=== PATIENT | female | born 1995 | race Caucasian/White ===

== ENCOUNTER 2017-09-05 17:34 | Emergency (ER) | payer BC ==
--- NOTE | 2017-09-05 18:34 | UC ---
FLU HPI - HPI Summary HPI Summary: Pt here w/ fever, chills, ST, PND, vomiting, aches, HENRY and cough. Partner dx'd w / influenza A yesterday. Pt has asthma and has not used inhaler as this is over 1 year old - would like refill. Denies rash, chest pain, SOB, neck stiffness. Took ibuprofen prior to arrival. - History of Current Complaint Chief Complaint: UCGeneralIllness Stated Complaint: FLU SX'S Time Seen by Provider: 09/05/17 18:17 Hx Obtained From: Patient, Family/Jewelry Manager - partner Hx Last Menstrual Period: 1 MO AGO Pain Intensity: 7 - Allergy/Home Medications Allergies/Adverse Reactions: Allergies Allergy/AdvReac Type Severity Reaction Status Date / Time No Known Allergies Allergy Verified 09/05/17 17:55 Home Medications: Home Medications Ibuprofen TAB* [Advil TAB*] 600 mg PO Q6H PRN 09/05/17 [History Confirmed ] Norgestimate-Ethinyl Estradiol [Norgestimate/Ethinyl Estr] 1 tab PO DAILY [History Confirmed 09/05/17] PMH/Surg Hx/FS Hx/Imm Hx Previously Healthy: Yes Respiratory History: Asthma - Surgical History Surgical History: None - Family History Known Family History: Positive: None - Social History Occupation: Employed Full-time Lives: With Family Alcohol Use: Rare Substance Use Type: None Smoking Status (MU): Never Smoked Tobacco Review of Systems Constitutional: Fever, Chills, Fatigue Eyes: Negative ENT: Sore Throat, Nasal Discharge Respiratory: Cough Cardiovascular: Negative Gastrointestinal: Vomiting, Nausea Genitourinary: Negative Motor: Negative Neurovascular: Negative Musculoskeletal: Arthralgia Neurological: Headache Psychological: Negative Is Patient Immunocompromised?: No All Other Systems Reviewed And Are Negative: Yes Physical Exam Triage Information Reviewed: Yes Appearance: No Pain Distress, Ill-Appearing - pt appears to have mild fatigue, Obese Vital Signs: Initial Vital Signs Temp 99.6 F 09/05/17 17:58 Pulse 100 09/05/17 17:58 Resp 20 09/05/17 17:58 BP 139/75 09/05/17 17:58 Pulse Ox 100 09/05/17 17:58 Eye Exam: Normal Eyes: Positive: Conjunctiva Clear. Negative: Discharge ENT Exam: Normal ENT: Positive: Normal ENT inspection, Hearing grossly normal, Pharynx normal - cobblestoning, Nasal congestion - mild, TMs normal. Negative: Tonsillar swelling, Tonsillar exudate, Trismus, Muffled voice, Hoarse voice Neck exam: Normal Neck: Positive: Supple, Nontender, No Lymphadenopathy Respiratory: Positive: Wheezing - w/ cough. Negative: Crackles, Rhonchi, Stridor Cardiovascular Exam: Normal Cardiovascular: Positive: RRR Abdominal Exam: Normal Abdomen Description: Positive: Nontender, No Organomegaly, Soft Bowel Sounds: Positive: Present Musculoskeletal Exam: Normal Musculoskeletal: Positive: Strength Intact Neurological Exam: Normal Psychological Exam: Normal Skin Exam: Normal Flu Course/Dx - Course Course Of Treatment: Pt here w/ flu-like sx and male partner w/ Influenza A dx' d yesterday. Will tx w/ tamiflu and supportive care. Reviewed danger s/sx of when to go to ED. Pt and partner agree w/ plan. NOTE: will send albuterol to pharmacy and advised to initiate use to prevent bronchitis - Differential Dx/Diagnosis Provider Diagnoses: *Flu-like sx. *Asthma Discharge - Discharge Plan Condition: Stable Disposition: HOME Prescriptions: Albuterol HFA INHALER* [Ventolin HFA Inhaler*] 2 puff INH Q6H PRN #1 mdi PRN Reason: Cough Oseltamivir CAP* [Tamiflu CAP*] 75 mg PO BID #10 cap Patient Education Materials: Influenza (ED), Asthma (ED) Referrals: No Primary Care Phys,NOPCP [Primary Care Provider] - [facility]FERR[facility] [Outside] Additional Instructions: Complete course of tamiflu. Use supportive care measures below to reduce symptoms: Perform nasal wash/netti pot 2 x day with 8 ounces of warm water + 1/4 teaspoon of salt or saline nasal spray as needed Perform throat gargles with warm salt water as needed Drink 60+ ounces of water daily Sleep 8+ hours per night Avoid Dairy and sugar Drink hot herbal/decaf tea with lemon & honey Drink chicken broth (preferably organic, free range chicken) Use a humidifier in your house, but especially near bed at night. You may also keep home temperature at 68F or less. Try a facial steam with or without eucalyptus essential oil or Keanu's vapor rub for decongestion. Cough drops Avoid smoke, candles, perfumes/colonge, air fresheners, scented lotions, etc Consider taking Vitamin D3 5,000iu and Vitamin C 1,000mg every day during illness
== END 2017-09-05 18:45 | disposition home or self-care (01) ==
LOC: UCCORT 17:34
DX: J11.1 Influenza due to unidentified influenza virus with other respiratory manifestations (principal); J45.909 Unspecified asthma, uncomplicated; Z20.828 Contact with and (suspected) exposure to other viral communicable diseases
CPT/HCPCS: 99202; G0463

== ENCOUNTER 2019-01-04 07:41 | Emergency (ER) | payer BC ==
[2019-01-04 08:06] VITALS: BP 131/86
--- NOTE | 2019-01-04 08:16 | UC ---
Throat Pain/Nasal Drew HPI - HPI Summary HPI Summary: 23-year-old female comes in with a chief complaint of nasal congestion and cough. Last 3 days nasal congestion really bad. She's been having these symptoms persistently for 2 months has gotten worse in the last 3 days. No fevers. She feels like the congestion is making it hard to breathe and it's making her asthma worse. She does use a steroid nasal spray and also an inhaled corticosteroid for her asthma. Rhinorrhea is green. She has been using her albuterol inhaler. - History of Current Complaint Chief Complaint: UCGeneralIllness Stated Complaint: CONGESTION Time Seen by Provider: 01/04/19 07:58 Hx Last Menstrual Period: 11/2018 Pain Intensity: 0 - Allergies/Home Medications Allergies/Adverse Reactions: Allergies Allergy/AdvReac Type Severity Reaction Status Date / Time No Known Allergies Allergy Verified 01/04/19 08:00 Home Medications: Home Medications Escitalopram * [Lexapro 5 mg (NF)] 10 mg PO DAILY 01/04/19 [History Confirmed ] Fluticasone/Vilanterol [Breo Ellipta 200-25 Mcg INH] 1 each IH DAILY PRN [History Confirmed 01/04/19] Mometasone NASAL (NF) [Nasonex (NF)] 1 spray .SEE ORDER DAILY 01/04/19 [History Confirmed 01/04/19] busPIRone TAB* [Buspar TAB*] 7.5 mg PO BID PRN 01/04/19 [History Confirmed 01/04] PMH/Surg Hx/FS Hx/Imm Hx Previously Healthy: Yes Respiratory History: Asthma - Surgical History Surgical History: None - Family History Known Family History: Positive: None - Social History Alcohol Use: Rare Substance Use Type: None Smoking Status (MU): Never Smoked Tobacco Review of Systems All Other Systems Reviewed And Are Negative: Yes Constitutional: Positive: Negative Skin: Positive: Negative Eyes: Positive: Negative ENT: Positive: Sore Throat, Nasal Discharge, Sinus Congestion Respiratory: Positive: Other - see hpi Cardiovascular: Positive: Negative Gastrointestinal: Positive: Negative Motor: Positive: Negative Neurovascular: Positive: Negative Musculoskeletal: Positive: Negative Neurological: Positive: Negative Psychological: Positive: Negative Is Patient Immunocompromised?: No Physical Exam Triage Information Reviewed: Yes Appearance: No Pain Distress, Well-Nourished, Ill-Appearing Vital Signs: Initial Vital Signs Temp 97.9 F 01/04/19 08:00 Pulse 92 01/04/19 08:00 Resp 18 01/04/19 08:00 BP 131/86 01/04/19 08:00 Pulse Ox 99 01/04/19 08:00 Vital Signs Reviewed: Yes Eye Exam: Normal Eyes: Positive: Conjunctiva Clear Neck: Positive: Supple Respiratory: Positive: Lungs clear, Normal breath sounds, No respiratory distress Cardiovascular: Positive: RRR Musculoskeletal Exam: Normal Musculoskeletal: Positive: Strength Intact, ROM Intact Neurological Exam: Normal Neurological: Positive: Alert, Muscle Tone Normal Psychological Exam: Normal Psychological: Positive: Normal Response To Family, Age Appropriate Behavior Skin Exam: Normal Throat Pain/Nasal Course/Dx - Differential Dx/Diagnosis Provider Diagnosis: Sinusitis, Asthma Discharge - Sign-Out/Discharge Documenting (check all that apply): Patient Departure All imaging exams completed and their final reports reviewed: No Studies - Discharge Plan Condition: Stable Disposition: HOME Prescriptions: Amoxicillin PO (*) [Amoxicillin 875 MG (*)] 875 mg PO BID #20 tab Patient Education Materials: Asthma (ED), Sinusitis (ED) Referrals: Celine Diez PA [Primary Care Provider] - Additional Instructions: FOLLOW UP WITH YOUR DOCTOR IF NOT COMPLETELY IMPROVED. GET RECHECKED SOONER IF YOUR CONDITION WORSENS OR ANY QUESTIONS OR CONCERNS. - Billing Disposition and Condition Condition: STABLE Disposition: Home
== END 2019-01-04 08:20 | disposition home or self-care (01) ==
LOC: UCCORT 07:41
DX: J32.9 Chronic sinusitis, unspecified (principal); J45.909 Unspecified asthma, uncomplicated; R05 Cough; R09.81 Nasal congestion
CPT/HCPCS: 99212; G0463

== ENCOUNTER 2019-03-13 08:34 | Emergency (ER) | payer BC ==
--- OUTSIDE RECORDS SUMMARY | 2019-03-13 08:41 | XMS REPORT | Continuity of Care Document ---
:1995 External Reference #:[id number] Author Name Celine Diez PA Address [address] [place] [address] [place] [address] Care Team Providers Name Role Phone Ronald Hurt DO - Family Medicine Care Team Information Armature Bander Problems Description No Information Available Social History Type Date Description Comments Sex Unknown ETOH Use Denies alcohol use Tobacco Use Start: Unknown Patient has never smoked Smoking Status Reviewed: 11/06/18 Patient has never smoked Allergies, Adverse Reactions, Alerts Description No Known Drug Allergies Medications Active Medications SIG Qnty Indications Ordering Date Provider Vienva Take 1 Tablet By 84tabs Z30.9 Ronald Hurt, 03/03/2019 0.1-20mg-mcg Mouth Every Day DO Tablets Proair HFA 2 puffs every 4-6 8.500gm R06.02 Rnoald Hurt, 09/29/2018 108(90Base) hours as needed DO mcg/Act Aerosol for cough, sob, wheezing Albuterol Sulfate HFA 2 puffs every 4-6 8.500gm R06.02 Ronald Hurt, hours as needed DO 108(90Base) mcg/Act for cough, sob, Aerosol wheezing Escitalopram Oxalate Take 1 Tablet By 90tabs F41.1 Ronald Hurt, 2017 Mouth Every Day DO 10mg Tablets Buspirone HCL 1 tablet by mouth 120tabs F41.1 Ronald Hurt, 06/26/2018 7.5mg twice a day as DO Tablets needed Lisinopril Take 1 Tablet By 90tabs I10 Ronald Hurt, 02/13/2018 10mg Tablets Mouth Every Day DO Medications Administered in Office Medication SIG Qnty Indications Ordering Provider Date History of Varicella infection Celine Diez PA 08/13/2003 Injection Immunizations CPT Code Status Date Vaccine Reaction Lot # [id number] Given 09/28/2018 Influenza Vac, Quadrivalent, Split, 0.5mL Dosage, Im Use 94940 Given 01/09/2018 Tdap (Adacel) Ages 7 And Above Only [id number] 64938 Given 10/29/2011 Menactra/Menveo Meningococcal Vaccine 00762 Given 01/16/2007 Tdap (Adacel) Ages 7 And Above Only 44179 Given 01/16/2007 Hepatitis A, Ped/Adolescent 2 Dose Schedule 55083 Given 03/14/2006 Hepatitis A, Ped/Adolescent 2 Dose Schedule 54417 Given 01/20/1999 Oral Poliovirus Immunization 66590 Given 10/30/1998 MMR Virus Immunization 55079 Given 10/30/1998 DTaP Immunization 7 Yrs & Younger 94729 Given 07/02/1998 Hib ACTHiB Vaccine 4 Dose Schedule 25847 Given 07/02/1998 DTaP Immunization 7 Yrs & Younger 42876 Given 07/02/1998 MMR Virus Immunization 15937 Given 07/02/1998 Oral Poliovirus Immunization 04442 Given 10/11/1997 Hib ACTHiB Vaccine 4 Dose Schedule 93661 Given 10/11/1997 DTaP Immunization 7 Yrs & Younger 76676 Given 10/10/1997 Hepatitis B Vac Ped/Adolescent 3 Dose Schedule 56323 Given 1994 Oral Poliovirus Immunization 16027 Given 1994 DTaP Immunization 7 Yrs & Younger 06524 Given 1994 Hib ACTHiB Vaccine 4 Dose Schedule 24989 Given 1994 Hib ACTHiB Vaccine 4 Dose Schedule 93898 Given 1994 Hepatitis B Vac Ped/Adolescent 3 Dose Schedule 54860 Given 1994 Oral Poliovirus Immunization 79959 Given 1994 DTaP Immunization 7 Yrs & Younger 54399 Given 1994 Hib ACTHiB Vaccine 4 Dose Schedule 12707 Given 1994 Hepatitis B Vac Ped/Adolescent 3 Dose Schedule 91708 Refused 03/10/2019 Meningococcal B(Bexsero)protn DOES NOT LIVE IN DORMS/ otrMembran Vesicle Vccn 2 dose NOT NEEDED sche Q2039 Refused 03/10/2019 Flu Vaccine NOS will get in fall 19475 Refused 11/06/2018 Pneumococcal 23 Immunization Adult Or Immunosuppressed Patient Q2035 Refused 12/05/2017 Afluria Imunization 27096 Refused 11/05/2017 Gardasil-9 (HPV) Nonavalent 2-3 Dose Schedule Im U-MenB Refused 11/05/2017 Meningococcal B (Non Billable) Unspecified Vital Signs Date Vital Result Comment 03/10/2019 8:09am Weight 252.00 lb Heart Rate 76 /min BP Systolic 120 mmHg BP Diastolic 68 mmHg Respiratory Rate 18 /min Height 60.5 inches 5'0.50" BMI (Body Mass Index) 48.4 kg/m2 03/04/2019 8:01am Weight 251.00 lb Heart Rate 74 /min BP Systolic 128 mmHg BP Diastolic 88 mmHg Respiratory Rate 18 /min Height 60.5 inches 5'0.50" BMI (Body Mass Index) 48.2 kg/m2 Results Test Date Facility Test Result H/L Range Note Chlamydia & GC, 11/06/2018 [facility] Chlamydia NOT DETECTED Not Detected Dna-[facility] GC NOT DETECTED Not Detected Laboratory test finding 11/06/2018 [facility] Pap Smear Thin Prep SEE NOTE 1 1 NUMBER26. [facility] [place] [address] CYTOLOGY REPORT Source of Specimen(s): Thin Prep Cervical Pap Smear - One Vial Date of Last Menstrual Period: 10/23/18 Other Clinical Conditions: Last Pap Smear: 2015 normal REFLEX TO HPV ASSAY IF RESULTS OF THIS PAP ARE ASCUS Specimen Adequacy SATISFACTORY FOR EVALUATION SCANT/NO ENDOCERVICAL COMPONENT General Categorization NEGATIVE FOR INTRAEPITHELIAL LESION OR MALIGNANCY Interpretation NEGATIVE FOR INTRAEPITHELIAL LESION OR MALIGNANCY Reported: 11/10/2018 08:35 Electronically Signed Out By Mona GATES(ASCP) lisa ICD9 Code: Z00.00 CPT code: A: MM590V Unless otherwise specified, testing performed by [email or web address] [place] [address] Procedures Description No Information Available Medical Devices Description No Information Available Encounters Type Date Location Provider Dx Diagnosis Office Visit 03/04/2019 [facility] Celine Diez PA S06.0x1D Concussion w Loc of 8:15a 30 minutes or less, subs S06.0x1D Concussion w Loc of 30 minutes or less, subs E66.01 Morbid (severe) obesity due to excess calories Z68.42 Body mass index (BMI) 45.0-49.9, adult Office Visit 02/25/2019 8:15a [facility] Celine Diez PA S06.0x1D Concussion w Loc of 30 minutes or less, subs S06.0x1D Concussion w Loc of 30 minutes or less, subs E66.01 Morbid (severe) obesity due to excess calories R51 Headache R51 Headache Z68.42 Body mass index (BMI) 45.0-49.9, adult R42 Dizziness and giddiness R42 Dizziness and giddiness Office Visit 02/18/2019 4:00p [facility] Celine Diez PA R55 Syncope and collapse M25.571 Pain in RIGHT ankle and joints of RIGHT foot E66.01 Morbid (severe) obesity due to excess calories S06.0x1D Concussion w Loc of 30 minutes or less, subs Z68.42 Body mass index (BMI) 45.0-49.9, adult Office Visit 11/06/2018 1:15p [facility] Celine Diez PA Z00.00 Encntr for general adult medical exam w/o abnormal findings F41.1 Generalized anxiety disorder Z13.31 Encounter for screening for depression I10 Essential (primary) hypertension J30.9 Allergic rhinitis, unspecified Z68.42 Body mass index (BMI) 45.0-49.9, adult Assessments Date Code Description Provider 03/10/2019 S06.0x1D Concussion with loss of consciousness of 30 Celine Diez PA minutes or less, subsequent encounter 03/10/2019 E66.01 Morbid (severe) obesity due to excess Celine Diez PA calories 03/10/2019 S93.401D Sprain of unspecified ligament of RIGHT Celine Diez PA ankle, subsequent encounter 03/10/2019 Z68.42 Body mass index (BMI) 45.0-49.9, adult Celine Diez PA 03/10/2019 R51 Headache Celine Diez PA 03/04/2019 S06.0x1D Concussion with loss of consciousness of 30 Celine Diez PA minutes or less, subsequent encounter 03/04/2019 S06.0x1D Concussion with loss of consciousness of 30 Celine Diez PA minutes or less, subsequent encounter 03/04/2019 E66.01 Morbid (severe) obesity due to excess Celine Diez PA calories 03/04/2019 Z68.42 Body mass index (BMI) 45.0-49.9, adult Celine Diez PA 02/25/2019 S06.0x1D Concussion with loss of consciousness of 30 Celine Diez PA minutes or less, subsequent encounter 02/25/2019 S06.0x1D Concussion with loss of consciousness of 30 Celine Diez PA minutes or less, subsequent encounter 02/25/2019 E66.01 Morbid (severe) obesity due to excess Celine Diez PA calories 02/25/2019 R51 Headache Celine Diez PA 02/25/2019 R51 Headache Celine Diez PA 02/25/2019 Z68.42 Body mass index (BMI) 45.0-49.9, adult Celine Diez PA 02/25/2019 R42 Dizziness and giddiness Celine Diez PA 02/25/2019 R42 Dizziness and giddiness Celine Diez PA 02/18/2019 R55 Syncope and collapse Celine Diez PA 02/18/2019 M25.571 Pain in RIGHT ankle and joints of RIGHT foot Celine Diez PA 02/18/2019 E66.01 Morbid (severe) obesity due to excess Celine Diez PA calories 02/18/2019 S06.0x1D Concussion with loss of consciousness of 30 Celine Diez PA minutes or less, subsequent encounter 02/18/2019 Z68.42 Body mass index (BMI) 45.0-49.9, adult Celine Diez PA 11/06/2018 Z11.3 Encounter for screening for infections with a [facility] predominantly sexual mode of transmission 11/06/2018 Z00.00 Encounter for general adult medical Celine Diez PA examination without abno 11/06/2018 Z11.8 Encounter for screening for other infectious [facility] and parasitic diseases 11/06/2018 F41.1 Generalized anxiety disorder Celine Diez PA 11/06/2018 Z13.31 Encounter for screening for depression Celine Diez PA 11/06/2018 I10 Essential (primary) hypertension Celine Diez PA 11/06/2018 J30.9 Allergic rhinitis, unspecified Celine Diez PA 11/06/2018 Z68.42 Body mass index (BMI) 45.0-49.9, adult Celine Deiz PA 11/06/2018 Z00.00 Encntr for general adult medical exam w/o [facility] abnormal findings Plan of Treatment Future Appointment(s):03/24/2019 8:00 am - Celine Diez PA at [facility]2018 8:30 am - Celine Diez PA at [facility]03/10/2019 - Celine Diez PAS06.0x1D Concussion with loss of consciousness of 30 minutes or less, subsequent encounterComments:ImprovingHas returned to work and is doing okayHas appt with concussion clinicAdvised to push fluidsto help prevent dehydration and any subsequent syncopal episodesFollow up:2 weeks Sign records release for lrexduV65.01 Morbid (severe) obesity due to excess [id number] Sprain of unspecified ligament of RIGHT ankle, subsequent encounterComments:R ankle sprain - was improving until return to workACE wrap applied in office todayAdvised can use ibuprofenElevation, ice when at homeZ68.42 Body mass index (BMI) 45.0-49.9, [id number] HeadacheComments:Slowly improvingHas appt set up with concussion clinicAdvise can try ibuprofen to help with painCallwith worsening headaches, dizziness, vision changes, nausea, vomiting Functional Status Description No Information Available Mental Status Description No Information Available Referrals Refer to Reason for Referral Status Appt Date Concussion Center [facility] Concussion Still with headache, Created [facility] dizziness, confusion faxed 02/25/19 js//fax was recevied they call and schedule with patient patient called for update - told her referral was faxed yesterday randi 02/26 spoke to tricia at office and patient was scheduled for 03/04 and cancelled 03/05/19 Yesica Singh [address] [place] [address] [phone]
--- OUTSIDE RECORDS SUMMARY | 2019-03-13 08:41 | XMS REPORT | Continuity of Care Document ---
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 Problems Description No Information Available Social History [...] puffs every 4-6 8.500gm R06.02 Ronald Hurt, 09/29/2018 108(90Base) hours as needed DO [...] Injection Immunizations CPT Code Status Date Vaccine Lot # [id number] Given 09/28/2018 Influenza Vac, Quadrivalent, Split, 0.5mL [place]os[place], [place] Use [address]602 Given 01/09/2018 Tdap (Adacel) Ages 7 And Above Only [id number] 11711 Given 10/29/2011 Menactra/Menveo Meningococcal Vaccine 98865 Given 01/16/2007 Tdap (Adacel) Ages 7 And Above Only 61850 Given 01/16/2007 Hepatitis A, Ped/Adolescent 2 Dose Schedule 69454 Given 03/14/2006 Hepatitis A, Ped/Adolescent 2 Dose Schedule 67042 Given 01/20/1999 Oral Poliovirus Immunization 65464 Given 10/30/1998 MMR Virus Immunization 69670 Given 10/30/1998 DTaP Immunization 7 Yrs & Younger 14457 Given 07/02/1998 Oral Poliovirus Immunization 73820 Given 07/02/1998 Hib ACTHiB Vaccine 4 Dose Schedule 50880 Given 07/02/1998 DTaP Immunization 7 Yrs & Younger 25441 Given 07/02/1998 MMR Virus Immunization 60254 Given 10/11/1997 Hib ACTHiB Vaccine 4 Dose Schedule 27496 Given 10/11/1997 DTaP Immunization 7 Yrs & Younger 65087 Given 10/10/1997 Hepatitis B Vac Ped/Adolescent 3 Dose Schedule 73356 Given 1994 Oral Poliovirus Immunization 59212 Given 1994 DTaP Immunization 7 Yrs & Younger 42631 Given 1994 Hib ACTHiB Vaccine 4 Dose Schedule 19473 Given 1994 Hib ACTHiB Vaccine 4 Dose Schedule 82248 Given 1994 Hepatitis B Vac Ped/Adolescent 3 Dose Schedule 97163 Given 1994 Oral Poliovirus Immunization 56841 Given 1994 DTaP Immunization 7 Yrs & Younger 52795 Given 1994 Hib ACTHiB Vaccine 4 Dose Schedule 80354 Given 1994 Hepatitis B Vac Ped/Adolescent 3 Dose Schedule 77577 Refused 11/06/2018 Pneumococcal 23 Immunization Adult Or Immunosuppressed Patient Q2035 Refused 12/05/2017 Afluria Imunization 69344 Refused 11/05/2017 Gardasil-9 (HPV) Nonavalent 2-3 Dose Schedule Im U-MenB Refused 11/05/2017 Meningococcal B (Non Billable) Unspecified Vital Signs Date Vital Result Comment 03/04/2019 8:01am Weight 251.00 lb Heart Rate 74 /min BP Systolic 128 mmHg BP Diastolic 88 mmHg Respiratory Rate 18 /min Height 60.5 inches 5'0.50" BMI (Body Mass Index) 48.2 kg/m2 02/25/2019 8:05am Weight 250.00 lb Heart Rate 70 /min BP Systolic 126 mmHg BP Diastolic 70 mmHg Respiratory Rate 18 /min Height 60.5 inches 5'0.50" BMI (Body Mass Index) 48.0 kg/m2 Results Test Date Facility Test Result H/L Range Note Chlamydia & GC, 11/06/2018 [facility] Chlamydia NOT DETECTED Not Detected Dna-FCMG GC NOT DETECTED Not Detected Laboratory test finding 11/06/2018 [facility] Pap Smear Thin Prep SEE NOTE 1 1 LABORATORY [employer]. [facility] [place] [address] CYTOLOGY REPORT Source of Specimen(s): Thin Prep [...] lisa ICD9 Code: Z00.00 CPT code: A: QO440V Unless otherwise specified, testing performed by Laboratory [facility] [employer] [place] [address] [place] [address] Procedures Description No Information Available Medical Devices Description No Information Available Encounters Type Date Location Provider Dx Diagnosis Office Visit 03/04/2019 [facility] Celine Diez PA S06.0x1D Concussion w Loc of 8:15a 30 minutes or less, subs S06.0x1D Concussion w Loc of 30 minutes or less, subs E66.01 Morbid (severe) obesity due to excess calories Z68.42 Body mass index (BMI) 45.0-49.9, adult Office Visit 02/25/2019 8:15a [facility] Celine Diez PA S06.0x1D Concussion w Loc of 30 minutes or less, subs S06.0x1D Concussion w Loc of 30 minutes or less, subs E66.01 Morbid (severe) obesity due to excess calories R51 Headache R51 Headache Z68.42 Body mass index (BMI) 45.0-49.9, adult R42 Dizziness and giddiness R42 Dizziness and giddiness Office Visit 02/18/2019 4:00p [facility] Celien Diez PA R55 Syncope and collapse M25.571 Pain in RIGHT ankle and joints of RIGHT foot E66.01 Morbid (severe) obesity due to excess calories S06.0x1D Concussion w Loc of 30 minutes or less, subs Z68.42 Body mass index (BMI) 45.0-49.9, adult Office Visit 11/06/2018 1:15p [facility] Celine Diez PA Z00.00 Encntr for general adult medical exam w/o abnormal findings F41.1 Generalized anxiety disorder Z13.31 Encounter for screening for depression I10 Essential (primary) hypertension J30.9 Allergic rhinitis, unspecified Z68.42 Body mass index (BMI) 45.0-49.9, adult Assessments Date Code Description Provider 03/04/2019 S06.0x1D Concussion with loss of consciousness [...] Syncope and collapse Celine Diez PA 02/18/2019 E66.01 Morbid (severe) obesity due to excess Celine Diez PA calories 02/18/2019 M25.571 Pain in RIGHT ankle and joints of RIGHT foot Celine Diez PA 02/18/2019 S06.0x1D Concussion with loss of consciousness [...] (BMI) 45.0-49.9, adult Celine Diez PA 11/06/2018 Z00.00 Encntr for general adult medical exam w/o FCMG [facility] abnormal findings Plan of Treatment Future Appointment(s):05/11/2019 8:30 am - Celine Diez PA at [facility] Functional Status Description No Information Available Mental Status Description No Information Available Referrals Refer to Reason for Referral Status Appt [facility] Concussion Center [facility] Concussion Still with headache, Created [facility] dizziness, confusion faxed 02/25/19 js//fax was recevied they call and schedule with patient patient called for update - told her referral was faxed yesterday randi 02/26 spoke to tricia at office and patient was scheduled for 03/04 and cancelled 03/05/19js [address] [place] [address] [phone]
--- OUTSIDE RECORDS SUMMARY | 2019-03-13 08:41 | XMS REPORT | Continuity of Care Document ---
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 Problems Description No Information Available Social History Type Date Description Comments Sex Unknown ETOH Use Denies alcohol use Tobacco Use Start: Unknown Patient has never smoked Smoking Status Reviewed: 11/06/18 Patient has never smoked Allergies, Adverse Reactions, Alerts Description No Known Drug Allergies Medications Active Medications SIG Qnty Indications Ordering Date Provider Proair HFA 2 puffs every 4-6 8.500gm R06.02 Ronald Hurt, 09/29/2018 108(90Base) hours as needed DO mcg/Act Aerosol for cough, sob, wheezing Albuterol Sulfate HFA 2 puffs every 4-6 8.500gm R06.02 Ronald Hurt, hours as needed DO 108(90Base) mcg/Act for cough, sob, Aerosol wheezing Escitalopram Oxalate Take 1 Tablet By 90tabs F41.1 Ronald Hurt, 2017 Mouth Every Day DO 10mg Tablets Levonorgestrel/Ethiny 1 by mouth every 84tabs Z30.9 Ronald Hurt, 2017 l Estradiol day DO 0.1-20mg-mcg Tablets Buspirone HCL 1 tablet by mouth [...] CPT Code Status Date Vaccine Lot # [id number] Given 09/28/2018 Influenza Vac, Quadrivalent, Split, 0.5mL [place]os[place], [place] Use 45374 Given 01/09/2018 Tdap (Adacel) Ages 7 And Above Only [id number] 96814 Given 10/29/2011 Menactra/Menveo Meningococcal Vaccine 14557 Given 01/16/2007 Tdap (Adacel) Ages 7 And Above Only 80374 Given 01/16/2007 Hepatitis A, Ped/Adolescent 2 Dose Schedule 65653 Given 03/14/2006 Hepatitis A, Ped/Adolescent 2 Dose Schedule 78111 Given 01/20/1999 Oral Poliovirus Immunization 02451 Given 10/30/1998 MMR Virus Immunization 66362 Given 10/30/1998 DTaP Immunization 7 Yrs & Younger 64165 Given 07/02/1998 Oral Poliovirus Immunization 86547 Given 07/02/1998 Hib ACTHiB Vaccine 4 Dose Schedule 94720 Given 07/02/1998 DTaP Immunization 7 Yrs & Younger 24423 Given 07/02/1998 MMR Virus Immunization 63241 Given 10/11/1997 Hib ACTHiB Vaccine 4 Dose Schedule 07136 Given 10/11/1997 DTaP Immunization 7 Yrs & Younger 48298 Given 10/10/1997 Hepatitis B Vac Ped/Adolescent 3 Dose Schedule 69079 Given 1994 Oral Poliovirus Immunization 00756 Given 1994 DTaP Immunization 7 Yrs & Younger 28046 Given 1994 Hib ACTHiB Vaccine 4 Dose Schedule 67862 Given 1994 Hib ACTHiB Vaccine 4 Dose Schedule 28713 Given 1994 Hepatitis B Vac Ped/Adolescent 3 Dose Schedule 44355 Given 1994 Oral Poliovirus Immunization 71670 Given 1994 DTaP Immunization 7 Yrs & Younger 65131 Given 1994 Hib ACTHiB Vaccine 4 Dose Schedule 05031 Given 1994 Hepatitis B Vac Ped/Adolescent 3 Dose Schedule 21055 Refused 11/06/2018 Pneumococcal 23 Immunization Adult Or Immunosuppressed Patient Q2035 Refused 12/05/2017 Afluria Imunization 64185 Refused 11/05/2017 Gardasil-9 (HPV) Nonavalent 2-3 Dose Schedule Im U-MenB Refused 11/05/2017 Meningococcal B (Non Billable) Unspecified Vital Signs Date Vital Result Comment 02/25/2019 8:05am Weight 250.00 lb Heart Rate 70 /min BP Systolic 126 mmHg BP Diastolic 70 mmHg Respiratory Rate 18 /min Height 60.5 inches 5'0.50" BMI (Body Mass Index) 48.0 kg/m2 02/18/2019 3:57pm Body Temperature 7.0 F Weight 252.00 lb Heart Rate 76 /min BP Systolic 136 mmHg BP Diastolic 84 mmHg Respiratory Rate 18 /min Height 60.5 inches 5'0.50" BMI (Body Mass Index) 48.4 kg/m2 Results Test Date Facility Test Result H/L Range Note Chlamydia & GC, 11/06/2018 [facility] Chlamydia NOT DETECTED Not Detected Dna-FCMG GC NOT DETECTED Not Detected Laboratory test finding 11/06/2018 [facility] Pap Smear Thin Prep SEE NOTE 1 1 [employer] [facility] [place]. [facility] [place] [address] CYTOLOGY REPORT Source of Specimen(s): Thin Prep Cervical Pap Smear - One Vial Date of Last Menstrual Period: 10/23/18 Other Clinical Conditions: Last Pap Smear: 2016 normal REFLEX TO HPV ASSAY IF RESULTS OF THIS PAP ARE ASCUS Specimen Adequacy SATISFACTORY FOR EVALUATION SCANT/NO ENDOCERVICAL COMPONENT General Categorization NEGATIVE FOR INTRAEPITHELIAL LESION OR MALIGNANCY Interpretation NEGATIVE FOR INTRAEPITHELIAL LESION OR MALIGNANCY Reported: 11/10/2018 08:35 Electronically Signed Out By Mona GATES(ASCP) lisa ICD9 Code: Z00.00 CPT code: A: FT000Y Unless otherwise specified, testing performed by Laboratory [facility] [place] [address] [place] [address] Procedures Description No Information Available Medical Devices Description No Information Available Encounters Type Date Location Provider Dx Diagnosis Office Visit 11/06/2018 Celine Ernandez PA Z00.00 Encntr for general 1:15p adult medical exam w/o abnormal findings F41.1 Generalized anxiety disorder Z13.31 Encounter for screening for depression I10 Essential (primary) hypertension J30.9 Allergic rhinitis, unspecified Z68.42 Body mass index (BMI) 45.0-49.9, adult Assessments Date Code Description Provider 02/25/2019 S06.0x1D Concussion with loss of consciousness [...] Lab abnormal findings Plan of Treatment Future Appointment(s):03/04/2019 8:15 am - Celine Diez PA at [facility] 8:30 am - [facility]/25[facility]2019 - Celine Diez PAS06.0x1D Concussion with loss of consciousness of 30 minutes or less, subsequent encounterComments:S/P Head InjuryOn rare occasions, pt can have no significant bleed findings on CT scan, but can havea small vein traumatized such that it bleeds very slowly and can build up blood over timeWatch/call for increaseing sleepiness, dizziness, HENRY, balance difficulty, nausea/vomiting, or any concernsf/u 1 week - note given to remain out of work for 1 weekAdvised brain restReferral:Concussion [facility],Follow up:1 weekE66.01 Morbid (severe) obesity due to excess [id number] HeadacheComments:Plan as aboveContinue tylenol prnZ68.42 Body mass index (BMI) 45.0-49.9, [id number] Dizziness and giddinessComments:Plan as above Functional Status Description No Information Available Mental Status Description No Information Available Referrals Refer to Reason for Referral Status Appt Date Concussion [facility] Concussion Still with headache, [facility] dizziness, confusion [address] [place] [address] [phone]
--- OUTSIDE RECORDS SUMMARY | 2019-03-13 08:41 | XMS REPORT | Continuity of Care Document ---
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 Problems Description No Information Available Social History [...] CPT Code Status Date Vaccine Lot # [id number] Given 09/28/2018 Influenza Vac, Quadrivalent, Split, 0.5mL Dosage, Im Use 41816 Given 01/09/2018 Tdap (Adacel) Ages 7 And Above Only [id number] 60243 Given 10/29/2011 Menactra/Menveo Meningococcal Vaccine 66477 Given 01/16/2007 Tdap (Adacel) Ages 7 And Above Only 39882 Given 01/16/2007 Hepatitis A, Ped/Adolescent 2 Dose Schedule 19284 Given 03/14/2006 Hepatitis A, Ped/Adolescent 2 Dose Schedule 55359 Given 01/20/1999 Oral Poliovirus Immunization 50566 Given 10/30/1998 MMR Virus Immunization 72194 Given 10/30/1998 DTaP Immunization 7 Yrs & Younger 13301 Given 07/02/1998 Oral Poliovirus Immunization 01881 Given 07/02/1998 Hib ACTHiB Vaccine 4 Dose Schedule 34316 Given 07/02/1998 DTaP Immunization 7 Yrs & Younger 42098 Given 07/02/1998 MMR Virus Immunization 63626 Given 10/11/1997 Hib ACTHiB Vaccine 4 Dose Schedule 35739 Given 10/11/1997 DTaP Immunization 7 Yrs & Younger 87146 Given 10/10/1997 Hepatitis B Vac Ped/Adolescent 3 Dose Schedule 82759 Given 1994 Oral Poliovirus Immunization 99109 Given 1994 DTaP Immunization 7 Yrs & Younger 24582 Given 1994 Hib ACTHiB Vaccine 4 Dose Schedule 41254 Given 1994 Hib ACTHiB Vaccine 4 Dose Schedule 42865 Given 1994 Hepatitis B Vac Ped/Adolescent 3 Dose Schedule 63790 Given 1994 Oral Poliovirus Immunization 70086 Given 1994 DTaP Immunization 7 Yrs & Younger 62475 Given 1994 Hib ACTHiB Vaccine 4 Dose Schedule 26645 Given 1994 Hepatitis B Vac Ped/Adolescent 3 Dose Schedule 69272 Refused 11/06/2018 Pneumococcal 23 Immunization Adult Or Immunosuppressed Patient Q2035 Refused 12/05/2017 Afluria Imunization 36893 Refused 11/05/2017 Gardasil-9 (HPV) Nonavalent 2-3 Dose [...] Thin Prep SEE NOTE 1 1 LABORATORY [employer]. [facility] [place] [address] CYTOLOGY REPORT Source of Specimen(s): Thin Prep [...] lisa ICD9 Code: Z00.00 CPT code: A: PT568S Unless otherwise specified, testing performed by Laboratory [facility] [email or web address] [place] [address] [place] [address] Procedures Description No Information Available Medical Devices Description No Information Available Encounters Type Date Location Provider Dx Diagnosis Office Visit 02/25/2019 Celine Ernandez PA S06.0x1D Concussion w Loc of 8:15a 30 minutes or less, subs S06.0x1D Concussion w Loc of 30 minutes or less, subs E66.01 Morbid (severe) obesity due to excess calories R51 Headache R51 Headache Z68.42 Body mass index (BMI) 45.0-49.9, adult R42 Dizziness and giddiness R42 Dizziness and giddiness Office Visit 02/18/2019 4:00p [facility] Celine Diez PA R55 Syncope and collapse M25.571 Pain in RIGHT ankle and joints of RIGHT foot E66.01 Morbid (severe) obesity due to excess calories S06.0x1D Concussion w Loc of 30 minutes or less, subs Z68.42 Body mass index (BMI) 45.0-49.9, adult Office Visit 11/06/2018 1:15p [facility] Celine Diez PA Z00.00 Encntr for [...] Concussion with loss of consciousness of 30 RgCeline hernandez PA minutes or less, subsequent encounter 02/25/2019 [...] 8:30 am - Celine Diez PA at [facility] Functional Status Description No Information Available Mental Status Description No Information Available Referrals Refer to Reason for Referral Status Appt Date Concussion Center [facility] Concussion Still with headache, Created [facility] dizziness, confusion faxed 02/25/19 js//fax was recevied they call and schedule with patient patient called for update - told her referral was faxed yesterday 02/[address] [place] [address] [place], [place] [address] [phone]
--- OUTSIDE RECORDS SUMMARY | 2019-03-13 08:41 | XMS REPORT | Continuity of Care Document ---
:1994 External Reference #:[id number] Author Name Celine Diez PA Address [address] [place] [address] [place] [address] Care Team Providers Name Role Phone Ronald Hurt DO - Family Medicine Care Team Information Animal Rehabilitator [phone] Problems Description No Information Available Social History [...] CPT Code Status Date Vaccine Lot # [id number] Given 09/28/2018 Influenza Vac, Quadrivalent, Split, 0.5mL Dosage, Im Use 54055 Given 01/09/2018 Tdap (Adacel) Ages 7 And Above Only [id number] 69140 Given 10/29/2011 Menactra/Menveo Meningococcal Vaccine 25994 Given 01/16/2007 Tdap (Adacel) Ages 7 And Above Only 56386 Given 01/16/2007 Hepatitis A, Ped/Adolescent 2 Dose Schedule 59460 Given 03/14/2006 Hepatitis A, Ped/Adolescent 2 Dose Schedule 80580 Given 01/20/1999 Oral Poliovirus Immunization 54708 Given 10/30/1998 MMR Virus Immunization 19468 Given 10/30/1998 DTaP Immunization 7 Yrs & Younger 89388 Given 07/02/1998 Oral Poliovirus Immunization 77156 Given 07/02/1998 Hib ACTHiB Vaccine 4 Dose Schedule 26706 Given 07/02/1998 DTaP Immunization 7 Yrs & Younger 75945 Given 07/02/1998 MMR Virus Immunization 48919 Given 10/11/1997 Hib ACTHiB Vaccine 4 Dose Schedule 33430 Given 10/11/1997 DTaP Immunization 7 Yrs & Younger 55926 Given 10/10/1997 Hepatitis B Vac Ped/Adolescent 3 Dose Schedule 67828 Given 1994 Oral Poliovirus Immunization 40190 Given 1994 DTaP Immunization 7 Yrs & Younger 10452 Given 1994 Hib ACTHiB Vaccine 4 Dose Schedule 91499 Given 1994 Hib ACTHiB Vaccine 4 Dose Schedule 19225 Given 1994 Hepatitis B Vac Ped/Adolescent 3 Dose Schedule 42460 Given 1994 Oral Poliovirus Immunization 06545 Given 1994 DTaP Immunization 7 Yrs & Younger 97629 Given 1994 Hib ACTHiB Vaccine 4 Dose Schedule 90858 Given 1994 Hepatitis B Vac Ped/Adolescent 3 Dose Schedule 48192 Refused 11/06/2018 Pneumococcal 23 Immunization Adult Or Immunosuppressed Patient Q2035 Refused 12/05/2017 Afluria Imunization 64598 Refused 11/05/2017 Gardasil-9 (HPV) Nonavalent 2-3 Dose [...] Thin Prep SEE NOTE 1 1 LABORATORY [facility] [employer]. [facility] [place] [address] CYTOLOGY REPORT Source of Specimen(s): Thin Prep [...] lisa ICD9 Code: Z00.00 CPT code: A: [id number] Unless otherwise specified, testing performed by Laboratory [employer] [place] [address] [place] [address] Procedures Description No Information Available Medical Devices Description No Information Available Encounters Type Date Location Provider Dx Diagnosis Office Visit 03/04/2019 [facility] Celine Diez PA S06.0x1D Concussion w Loc of 8:15a 30 minutes or less, subs S06.0x1D Concussion w Loc of 30 minutes or less, subs E66.01 Morbid (severe) obesity due to excess calories Z68.42 Body mass index (BMI) 45.0-49.9, adult Office Visit 02/25/2019 8:15a [facility] Celine Diez PA S06.0x1D Concussion w Loc of 30 minutes or less, subs S06.0x1D Concussion w Loc of 30 minutes or less, subs E66.01 Morbid (severe) obesity due to excess calories R51 Headache R51 Headache Z68.42 Body mass index (BMI) 45.0-49.9, adult R42 Dizziness and giddiness R42 Dizziness and giddiness Office Visit 02/18/2019 4:00p [facility] Celine Diez PA R55 Syncope and collapse M25.571 Pain in RIGHT ankle and joints of RIGHT foot E66.01 Morbid (severe) obesity due to excess calories S06.0x1D Concussion w Loc of 30 minutes or less, subs Z68.42 Body mass index (BMI) 45.0-49.9, adult Office Visit 11/06/2018 1:15p [facility] Celine Diez PA Z00.00 Encntr for general [...] 8:30 am - Celine Diez PA at [facility] Functional Status Description No Information Available Mental Status Description No Information Available Referrals Refer to Reason for Referral Status Appt [facility] Concussion Center [facility] Concussion Still with headache, Created [facility] dizziness, confusion faxed 02/25/19 js//fax was recevied they call and schedule with patient patient called for update - told her referral was faxed yesterday randi 02/26 spoke to tricia at office and patient was scheduled for 03/04 and cancelled 03/05/19js [address] [place] [address] [phone]
--- OUTSIDE RECORDS SUMMARY | 2019-03-13 08:41 | XMS REPORT | Continuity of Care Document ---
:1995 External Reference #:[id number] Author Name Celine Diez PA Address [address] [place] [address] [place] [address] Care Team Providers Name Role Phone Ronald Hurt DO - Family Medicine Care Team Information Recovery Advocate [phone] Problems Description No Information Available Social History [...] CPT Code Status Date Vaccine Lot # [id number] Given 09/28/2018 Influenza Vac, Quadrivalent, Split, 0.5mL Dosage, Im Use 13330 Given 01/09/2018 Tdap (Adacel) Ages 7 And Above Only [id number] 20217 Given 10/29/2011 Menactra/Menveo Meningococcal Vaccine 15881 Given 01/16/2007 Tdap (Adacel) Ages 7 And Above Only 32502 Given 01/16/2007 Hepatitis A, Ped/Adolescent 2 Dose Schedule 16524 Given 03/14/2006 Hepatitis A, Ped/Adolescent 2 Dose Schedule 43476 Given 01/20/1999 Oral Poliovirus Immunization 43631 Given 10/30/1998 MMR Virus Immunization 04259 Given 10/30/1998 DTaP Immunization 7 Yrs & Younger 92918 Given 07/02/1998 Oral Poliovirus Immunization 78429 Given 07/02/1998 Hib ACTHiB Vaccine 4 Dose Schedule 09685 Given 07/02/1998 DTaP Immunization 7 Yrs & Younger 96953 Given 07/02/1998 MMR Virus Immunization 59654 Given 10/11/1997 Hib ACTHiB Vaccine 4 Dose Schedule 17866 Given 10/11/1997 DTaP Immunization 7 Yrs & Younger 90219 Given 10/10/1997 Hepatitis B Vac Ped/Adolescent 3 Dose Schedule 94001 Given 1994 Oral Poliovirus Immunization 92341 Given 1994 DTaP Immunization 7 Yrs & Younger 72673 Given 1994 Hib ACTHiB Vaccine 4 Dose Schedule 36902 Given 1994 Hib ACTHiB Vaccine 4 Dose Schedule 19928 Given 1994 Hepatitis B Vac Ped/Adolescent 3 Dose Schedule 48366 Given 1994 Oral Poliovirus Immunization 97991 Given 1994 DTaP Immunization 7 Yrs & Younger 91634 Given 1994 Hib ACTHiB Vaccine 4 Dose Schedule 43888 Given 1994 Hepatitis B Vac Ped/Adolescent 3 Dose Schedule 52345 Refused 11/06/2018 Pneumococcal 23 Immunization Adult Or Immunosuppressed Patient Q2035 Refused 12/05/2017 Afluria Imunization 43210 Refused 11/05/2017 Gardasil-9 (HPV) Nonavalent 2-3 Dose [...] Thin Prep SEE NOTE 1 1 LABORATORY [facility] [employer] [facility] [employer]. [facility] [place] [address] CYTOLOGY REPORT Source of Specimen(s): Thin Prep [...] lisa ICD9 Code: Z00.00 CPT code: A: NP026Y Unless otherwise specified, testing performed by Laboratory [facility] [place] [address] [place] [address] Procedures Description No Information Available Medical Devices [...] Dizziness and giddiness Office Visit 02/18/2019 4:00p [facility] Celine Diez PA R55 Syncope and collapse M25.571 Pain in RIGHT ankle and joints of RIGHT foot E66.01 Morbid (severe) obesity due to excess calories S06.0x1D Concussion w Loc of 30 minutes or less, subs Z68.42 Body mass index (BMI) 45.0-49.9, adult Office Visit 11/06/2018 1:15p [facility] Celine Diez PA Z00.00 Encntr for [...] 8:30 am - Celine Diez PA at [facility] Functional Status Description No Information Available Mental Status Description No Information Available Referrals Refer to Reason for Referral Status Appt Date Concussion Center [facility] Concussion Still with headache, Created [facility] dizziness, confusion faxed 02/25/19 js//fax was recevied they call and schedule with patient patient called for update - told her referral was faxed yesterday 02/[address] [place] [address] [place], [place] [id number] [phone]
--- OUTSIDE RECORDS SUMMARY | 2019-03-13 08:41 | XMS REPORT | Continuity of Care Document ---
:1994 External Reference #:[id number] Author Name Celine Diez PA Address [address] [place] [address] [place] [address] Care Team Providers Name Role Phone Ronald Hurt DO - Family Medicine Care Team Information Appeals Rn [phone] Problems Description No Information Available Social History [...] CPT Code Status Date Vaccine Lot # [id number] Given 09/28/2018 Influenza Vac, Quadrivalent, Split, 0.5mL Dosage, Im Use 13329 Given 01/09/2018 Tdap (Adacel) Ages 7 And Above Only [id number] 68266 Given 10/29/2011 Menactra/Menveo Meningococcal Vaccine 14113 Given 01/16/2007 Tdap (Adacel) Ages 7 And Above Only 25053 Given 01/16/2007 Hepatitis A, Ped/Adolescent 2 Dose Schedule 89328 Given 03/14/2006 Hepatitis A, Ped/Adolescent 2 Dose Schedule 77574 Given 01/20/1999 Oral Poliovirus Immunization 92276 Given 10/30/1998 MMR Virus Immunization 57081 Given 10/30/1998 DTaP Immunization 7 Yrs & Younger 39403 Given 07/02/1998 Oral Poliovirus Immunization 24875 Given 07/02/1998 Hib ACTHiB Vaccine 4 Dose Schedule 12912 Given 07/02/1998 DTaP Immunization 7 Yrs & Younger 82290 Given 07/02/1998 MMR Virus Immunization 79139 Given 10/11/1997 Hib ACTHiB Vaccine 4 Dose Schedule 98539 Given 10/11/1997 DTaP Immunization 7 Yrs & Younger 08293 Given 10/10/1997 Hepatitis B Vac Ped/Adolescent 3 Dose Schedule 44959 Given 1994 Oral Poliovirus Immunization 88370 Given 1994 DTaP Immunization 7 Yrs & Younger 28447 Given 1994 Hib ACTHiB Vaccine 4 Dose Schedule 70898 Given 1994 Hib ACTHiB Vaccine 4 Dose Schedule 49351 Given 1994 Hepatitis B Vac Ped/Adolescent 3 Dose Schedule 33223 Given 1994 Oral Poliovirus Immunization 32890 Given 1994 DTaP Immunization 7 Yrs & Younger 17959 Given 1994 Hib ACTHiB Vaccine 4 Dose Schedule 93375 Given 1994 Hepatitis B Vac Ped/Adolescent 3 Dose Schedule 07117 Refused 11/06/2018 Pneumococcal 23 Immunization Adult Or Immunosuppressed Patient Q2035 Refused 12/05/2017 Afluria Imunization 96853 Refused 11/05/2017 Gardasil-9 (HPV) Nonavalent 2-3 Dose [...] Thin Prep SEE NOTE 1 1 LABORATORY [facility] [employer] [place] [address] CYTOLOGY REPORT Source of Specimen(s): Thin Prep [...] lisa ICD9 Code: Z00.00 CPT code: A: QJ025U Unless otherwise specified, testing performed by Laboratory [employer] [place] [address] [place] [address] Procedures Description No Information Available Medical Devices Description No Information Available Encounters Type Date Location Provider Dx Diagnosis Office Visit 03/04/2019 [facility] Celine Diez PA S06.0x1D Concussion w Loc of 8:15a 30 minutes or less, subs S06.0x1D Concussion w Loc of 30 minutes or less, subs E66.01 Morbid (severe) obesity due to excess calories Z68.42 Body mass index (BMI) 45.0-49.9, adult Office Visit 02/25/2019 8:15a [facility] Celine Diez PA S06.0x1D Concussion w Loc of 30 minutes or less, subs S06.0x1D Concussion w Loc of 30 minutes or less, subs E66.01 Morbid (severe) obesity due to excess calories R51 Headache R51 Headache Z68.42 Body mass index (BMI) 45.0-49.9, adult R42 Dizziness and giddiness R42 Dizziness and giddiness Office Visit 02/18/2019 4:00p [facility] Celine Diez PA R55 Syncope and collapse M25.571 Pain in RIGHT ankle and joints of RIGHT foot E66.01 Morbid (severe) obesity due to excess calories S06.0x1D Concussion w Loc of 30 minutes or less, subs Z68.42 Body mass index (BMI) 45.0-49.9, adult Office Visit 11/06/2018 1:15p [facility] Celine Diez PA Z00.00 Encntr for [...] 8:30 am - Celine Diez PA at [facility] Functional Status Description No Information Available Mental Status Description No Information Available Referrals Refer to Reason for Referral Status Appt [facility] Concussion Center [facility] Concussion Still with headache, Created [facility] dizziness, confusion faxed 02/25/19 js//fax was recevied they call and schedule with patient patient called for update - told her referral was faxed yesterday randi 02/26 spoke to tricia at office and patient was scheduled for 03/04 and cancelled 03/05/19js [address] [place] [address] [phone]
--- OUTSIDE RECORDS SUMMARY | 2019-03-13 08:42 | XMS REPORT | Continuity of Care Document ---
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 Description No Information Available Social History [...] CPT Code Status Date Vaccine Lot # [id number] Given 09/28/2018 Influenza Vac, Quadrivalent, Split, 0.5mL Dosage, Im Use 32964 Given 01/09/2018 Tdap (Adacel) Ages 7 And Above Only [id number] 08776 Given 10/29/2011 Menactra/Menveo Meningococcal Vaccine 77303 Given 01/16/2007 Tdap (Adacel) Ages 7 And Above Only 00539 Given 01/16/2007 Hepatitis A, Ped/Adolescent 2 Dose Schedule 90554 Given 03/14/2006 Hepatitis A, Ped/Adolescent 2 Dose Schedule 57413 Given 01/20/1999 Oral Poliovirus Immunization 06944 Given 10/30/1998 MMR Virus Immunization 53445 Given 10/30/1998 DTaP Immunization 7 Yrs & Younger 60180 Given 07/02/1998 Oral Poliovirus Immunization 15715 Given 07/02/1998 Hib ACTHiB Vaccine 4 Dose Schedule 03437 Given 07/02/1998 DTaP Immunization 7 Yrs & Younger 88322 Given 07/02/1998 MMR Virus Immunization 85287 Given 10/11/1997 Hib ACTHiB Vaccine 4 Dose Schedule 27818 Given 10/11/1997 DTaP Immunization 7 Yrs & Younger 73830 Given 10/10/1997 Hepatitis B Vac Ped/Adolescent 3 Dose Schedule 66158 Given 1994 Oral Poliovirus Immunization 52769 Given 1994 DTaP Immunization 7 Yrs & Younger 59918 Given 1994 Hib ACTHiB Vaccine 4 Dose Schedule 39709 Given 1994 Hib ACTHiB Vaccine 4 Dose Schedule 42213 Given 1994 Hepatitis B Vac Ped/Adolescent 3 Dose Schedule 24993 Given 1994 Oral Poliovirus Immunization 94976 Given 1994 DTaP Immunization 7 Yrs & Younger 07949 Given 1994 Hib ACTHiB Vaccine 4 Dose Schedule 61657 Given 1994 Hepatitis B Vac Ped/Adolescent 3 Dose Schedule 91453 Refused 11/06/2018 Pneumococcal 23 Immunization Adult Or Immunosuppressed Patient Q2035 Refused 12/05/2017 Afluria Imunization 85682 Refused 11/05/2017 Gardasil-9 (HPV) Nonavalent 2-3 Dose Schedule Im U-MenB Refused 11/05/2017 Meningococcal B (Non Billable) Unspecified Vital Signs Date Vital Result Comment 02/18/2019 3:57pm Body Temperature 7.0 F Weight 252.00 lb Heart Rate 76 /min BP Systolic 136 mmHg BP Diastolic 84 mmHg Respiratory Rate 18 /min Height 60.5 inches 5'0.50" BMI (Body Mass Index) 48.4 kg/m2 11/06/2018 1:16pm Weight 240.00 lb Heart Rate 84 /min BP Systolic 132 mmHg BP Diastolic 84 mmHg Respiratory Rate 18 /min Height 60.5 inches 5'0.50" BMI (Body Mass Index) 46.1 kg/m2 Results Test Date Facility Test Result H/L Range Note Chlamydia & GC, 11/06/2018 [facility] Chlamydia NOT DETECTED Not Detected Dna-FCMG GC NOT DETECTED Not Detected Laboratory test finding 11/06/2018 [facility] Pap Smear Thin Prep SEE NOTE 1 1 LABORATORY [facility] [employer]. [facility] [place] [address] CYTOLOGY REPORT Source of Specimen(s): Thin Prep [...] lisa ICD9 Code: Z00.00 CPT code: A: EU847U Unless otherwise specified, testing performed by [facility] [place] [address] [place] [address] Procedures Description No Information Available Medical Devices [...] 45.0-49.9, adult Assessments Date Code Description Provider 02/18/2019 R55 Syncope and collapse Celine Diez [...] Lab abnormal findings Plan of Treatment Future Appointment(s):02/25/2019 8:15 am - Celine Diez PA at [facility]2018 8:30 am - C[facility] at [facility]02/18/2019 - Celine Diez PAR55 Syncope and collapseComments:Suspect vasovagalWork up normalAdvised to continue to monitorCall with recurrent symptomsFollow up:1 weekM25.571 Pain in RIGHT ankle and joints of RIGHT footNew Xrays:Ankle, 2 Views, RT, Scheduled: Comments:Suspect sprainWill check x-ray for evalTylenol prn for painKeep elevated, iceCall with questions/uljytwpoK04.01 Morbid (severe) obesity due to excess socpppduI39.0x1D Concussion with loss of consciousness of 30 minutes or less, subsequent encounterComments:S/P Head InjuryAdvised that on rare occasions , pt can have no significant bleed findings on CT scan,but can have a small vein traumatized such that it bleeds very slowly and can build up blood over time Advised to watch/call for increaseing sleepiness, dizziness, HNERY, balance difficulty, nausea/vomiting, or any concernsf/u 1 weekZ68.42 Body mass index ( BMI) 45.0-49.9, adult Functional Status Description No Information Available Mental Status Description No Information Available Referrals Description No Information Available
[2019-03-13 08:50] VITALS: BP 137/78
--- NOTE | 2019-03-13 09:17 | UC ---
Throat Pain/Nasal Drew HPI - HPI Summary HPI Summary: 23 yo female with sore throat x 3 days fever myalgias she has had mono - History of Current Complaint Chief Complaint: UCRespiratory Stated Complaint: SORE THROAT, FEVER Time Seen by Provider: 03/13/19 09:07 Hx Obtained From: Patient Hx Last Menstrual Period: 03/05/19 Onset/Duration: Gradual Onset, Lasting Days Severity: Moderate Pain Intensity: 7 Pain Scale Used: 0-10 Numeric Cough: None Associated Signs & Symptoms: Positive: Negative, Fever Related History: Seasonal Allergies - Epiglottits Risk Factors Epiglottis Risk Factors: Negative - Allergies/Home Medications Allergies/Adverse Reactions: Allergies Allergy/AdvReac Type Severity Reaction Status Date / Time No Known Allergies Allergy Verified 03/13/19 08:50 Home Medications: Home Medications Loratadine 10 mg PO DAILY 03/13/19 [History Confirmed 03/13/19] PMH/Surg Hx/FS Hx/Imm Hx Previously Healthy: Yes - Surgical History Surgical History: None - Family History Known Family History: Positive: Cardiac Disease, Hypertension Negative: Diabetes - Social History Alcohol Use: Rare Substance Use Type: None Smoking Status (MU): Never Smoked Tobacco Review of Systems All Other Systems Reviewed And Are Negative: Yes Constitutional: Positive: Fever, Chills Skin: Positive: Negative Eyes: Positive: Negative ENT: Positive: Sore Throat Respiratory: Positive: Negative Cardiovascular: Positive: Negative Gastrointestinal: Positive: Negative Genitourinary: Positive: Negative Motor: Positive: Negative Neurovascular: Positive: Negative Musculoskeletal: Positive: Negative Neurological: Positive: Negative Psychological: Positive: Negative Physical Exam Triage Information Reviewed: Yes Appearance: Well-Appearing, No Pain Distress, Well-Nourished Vital Signs: Initial Vital Signs Temp 98.4 F 03/13/19 08:45 Pulse 89 03/13/19 08:45 Resp 16 03/13/19 08:45 BP 137/78 03/13/19 08:45 Pulse Ox 100 03/13/19 08:45 Vital Signs Reviewed: Yes Eyes: Positive: Conjunctiva Clear ENT: Positive: Hearing grossly normal, Pharyngeal erythema, TMs normal, Tonsillar swelling, Tonsillar exudate, Uvula midline, Other - ++++ gag reflex. Negative: Nasal congestion, Nasal drainage, Trismus, Muffled voice, Dental tenderness Dental Exam: Normal Neck: Positive: Supple, Tenderness @ - enlarged and tender ant cerv nodes Respiratory: Positive: Lungs clear, Normal breath sounds, No respiratory distress Cardiovascular: Positive: RRR, No Murmur Musculoskeletal: Positive: ROM Intact, No Edema Neurological: Positive: Alert Psychological Exam: Normal Skin Exam: Other - acne Diagnostics - Laboratory Lab Results: strep (-) Throat Pain/Nasal Course/Dx - Differential Dx/Diagnosis Provider Diagnosis: Acute tonsillitis Discharge ED - Sign-Out/Discharge Documenting (check all that apply): Patient Departure All imaging exams completed and their final reports reviewed: No Studies - Discharge Plan Condition: Stable Disposition: HOME Prescriptions: Amoxicillin PO (*) [Amoxicillin 875 MG (*)] 875 mg PO BID #20 tab Patient Education Materials: Tonsillitis (ED) Referrals: Celine Diez PA [Primary Care Provider] - 4 Days (if not better) Additional Instructions: tylenol or advil as needed for pain recheck in 3-4 days if not better recheck sooner for worsening symptoms - Billing Disposition and Condition Condition: STABLE Disposition: Home
== END 2019-03-13 09:33 | disposition home or self-care (01) ==
LOC: UCCORT 08:34
DX: J03.90 Acute tonsillitis, unspecified (principal)
CPT/HCPCS: 87651; 99212; G0463

== ENCOUNTER 2019-06-30 16:44 | Emergency (ER) | payer BC ==
[2019-06-30 16:56] VITALS: BP 139/91
--- NOTE | 2019-06-30 17:18 | UC ---
Skin Complaint HPI - HPI Summary HPI Summary: 24 yo woman with outbreak of erythematous itchy rash x 4 days ago, and has not responded to numerous efforts at otc treatment, including emollients, 1% hydrocortisone cream, benadryl (which causes excess sedation). Hx of eczema, no hx of urticaria, does have asthma. She has not been using her inhaler very much. No new meds, foods or recent fever or illness. 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 Hx Last Menstrual Period: 03/05/19 Onset/Duration: Gradual Onset, Lasting Days - 4 Timing: Constant Onset Severity: Moderate Current Severity: Moderate Pain Intensity: 0 Location: Diffuse Aggravating Factor(s): Clothing, Touch Alleviating Factor(s): Antihistamines - minimally effective, OTC Creams/Salves Associated Signs & Symptoms: Positive: Nausea. Negative: Cough, Wheezing - Allergy/Home Medications Allergies/Adverse Reactions: Allergies Allergy/AdvReac Type Severity Reaction Status Date / Time environmental Allergy Congestion Uncoded 06/30/19 16:57 PMH/Surg Hx/FS Hx/Imm Hx Previously Healthy: Yes - obesity - Surgical History Surgical History: None - Family History Known Family History: Positive: Cardiac Disease, Hypertension Negative: Diabetes - Social History Occupation: Employed Full-time Lives: With Family Alcohol Use: Rare Substance Use Type: None Smoking Status (MU): Never Smoked Tobacco Review of Systems All Other Systems Reviewed And Are Negative: Yes Constitutional: Positive: Fatigue - poor sleep Skin: Positive: Rash Eyes: Positive: Negative ENT: Positive: Negative Respiratory: Positive: Other - occasional albuterol use for asthma Cardiovascular: Positive: Negative Gastrointestinal: Positive: Nausea Genitourinary: Positive: Other - normal withdrawal bleed one month ago. Motor: Positive: Negative Neurovascular: Positive: Negative Musculoskeletal: Positive: Negative Neurological: Positive: Negative Psychological: Positive: Negative Is Patient Immunocompromised?: No Physical Exam Triage Information Reviewed: Yes Appearance: Ill-Appearing - Patchy erythematous rash on face, upper chest. Almost confluent erythema of arms from shoulder to wrists, and on lower legs, especially calves., Obese Vital Signs: Initial Vital Signs Temp 99.1 F 06/30/19 16:49 Pulse 84 06/30/19 16:49 Resp 18 06/30/19 16:49 BP 139/91 06/30/19 16:49 Pulse Ox 100 06/30/19 16:49 ENT: Positive: Pharynx normal Neck: Positive: Supple, Nontender, No Lymphadenopathy Respiratory: Positive: Lungs clear, Normal breath sounds Cardiovascular: Positive: RRR, No Murmur Musculoskeletal Exam: Normal Neurological Exam: Normal Psychological Exam: Normal Skin Exam: Other - confluent erythematous rash on arms and lower legs, with raised areas over the extensor surface. Patchy facial erythema. Course/Dx - Course Course Of Treatment: Advised use of antihistamines, emollients, steroid course. Solumedrom given today. - Differential Diagnoses - Skin Complaint Differential Diagnoses: Eczema, Scabies, Urticaria - Diagnoses Provider Diagnosis: Urticaria Discharge ED - Sign-Out/Discharge Documenting (check all that apply): Patient Departure All imaging exams completed and their final reports reviewed: No Studies - Discharge Plan Condition: Stable Disposition: HOME Prescriptions: predniSONE [Prednisone 20 MG TAB] 2 tab PO DAILY #10 tablet Patient Education Materials: Urticaria (ED) Referrals: Celine Diez PA [Primary Care Provider] - Additional Instructions: You have been given solumedrol today to decrease the itch and rash. Begin prednisone tomorrow morning, taking it once daily in the morning with food. It can cause some stomach upset, and in some individuals can cause some irritability, insomnia, and fluuid retention. Continue use of oatmeal baths and use of skin emollients (you might try use of CeraVe lotion as a useful base skin moisturizer.). Begin use of Zyrtec (cetirazine 10mg) once daily at night as an anthihstamine, using benadryl in addition to help with itching. You should see improvement by tomorrow. Follow up with your primary doctor on Friday if you are not seeing improvement. - Billing Disposition and Condition Condition: STABLE Disposition: Home
[2019-06-30] MEDS ORDERED: methylPREDNISolone 125 MG* 2 ML VIAL IM ONE (17:25)
== END 2019-06-30 17:41 | disposition home or self-care (01) ==
LOC: UCCORT 16:44
DX: L50.9 Urticaria, unspecified (principal); J45.909 Unspecified asthma, uncomplicated; R53.83 Other fatigue; R11.0 Nausea; Z91.09 Other allergy status, other than to drugs and biological substances
CPT/HCPCS: 96372; 99212; G0463; J2930